=== PATIENT | male | born 1990 | race Caucasian/White ===

== ENCOUNTER 2025-03-10 09:32 | Emergency (ER) | payer OTHER ==
[~2025-03-10] VITALS: Ht 180.3 cm; Wt 102.1 kg
== END 2025-03-10 11:06 | disposition home or self-care (01) ==
LOC: ER 09:32
DX: M77.8 Other enthesopathies, not elsewhere classified (principal); I10 Essential (primary) hypertension
CPT/HCPCS: 73130; 99283-25